=== PATIENT | male | born 1985 | race Caucasian/White ===

== ENCOUNTER → 2022-11-25 | Outpatient (CLI) | payer OTHER ==
[2022-11-25 13:39] LABS: BASO # 0.03 K/mm3 (0.02-0.10); EOS # 0.18 K/mm3 (0.04-0.40); EOS % 2.6 % (0.0-4.0); HEMATOCRIT 45.8 % (42.0-52.0); HEMOGLOBIN 15.4 g/dL (13.5-18.0); MEAN CELL VOLUME 89 fl (78-100); MEAN CORPUSCULAR HEMOGLOBIN 30 pg (27-31); MEAN CORPUSCULAR HGB CONC 34 g/dL (33-37); MEAN PLATELET VOLUME 9.5 fl (7.4-10.4); MONO # 0.43 K/mm3 (0.20-0.80); NEU # 4.69 K/mm3 (1.40-6.50); PLATELET COUNT 285 K/mm3 (130-400); RED BLOOD COUNT 5.14 M/mm3 (4.20-5.60); WHITE BLOOD COUNT 7.1 K/mm3 (4.8-10.8)
[2022-11-25 13:42] LABS: ALBUMIN 4.4 g/dL (3.5-5.0)
[2022-11-25 13:43] LABS: POTASSIUM 4.3 mmol/L (3.5-5.1)
[2022-11-25 13:44] LABS: CALCIUM 9.7 mg/dL (8.3-10.5)
[2022-11-25 13:45] LABS: TOTAL PROTEIN 7.8 g/dL (6.4-8.3)
[2022-11-25 13:47] LABS: TOTAL BILIRUBIN 0.8 mg/dL (0.2-1.2)
== END ==
LOC: LAB 13:20
DX: Z79.899 Other long term (current) drug therapy (principal)

== ENCOUNTER → 2024-03-07 | Outpatient (CLI) | payer OTHER ==
[~2024-03-07] MED LIST: LISINOPRIL20 MG PO; MELOXICAM7.5 MG PO; PREDNISONE10 MG PO; PREDNISONE20 M1 PO; ZYLOPRIM 100MG100 MG PO
[2024-03-07 16:15] LABS: BASO # 0.04 K/mm3 (0.02-0.10); EOS % 2.5 % (0.0-4.0); HEMATOCRIT 42.6 % (42.0-52.0); LYMPH# 1.61 K/mm3 (1.50-4.00); MEAN CELL VOLUME 92 fl (78-100); MEAN CORPUSCULAR HEMOGLOBIN 30 pg (27-31); MEAN CORPUSCULAR HGB CONC 33 g/dL (33-37); MEAN PLATELET VOLUME 9.3 fl (7.4-10.4); MONO # 0.47 K/mm3 (0.20-0.80); NEU # 5.67 K/mm3 (1.40-6.50); PLATELET COUNT 245 K/mm3 (130-400); RED BLOOD COUNT 4.65 M/mm3 (4.20-5.60); RED CELL DISTRIBUTION WIDTH 12.6 % (11.5-14.5)
[2024-03-07 16:22] LABS: ALBUMIN 4.2 g/dL (3.5-5.0)
[2024-03-07 16:24] LABS: CALCIUM 9.5 mg/dL (8.3-10.5)
[2024-03-07 16:25] LABS: TOTAL PROTEIN 7.4 g/dL (6.4-8.3)
[2024-03-07 16:27] LABS: TOTAL BILIRUBIN 0.5 mg/dL (0.2-1.2)
[2024-03-07 22:51] LABS: HEPATITIS B SURFACE ANTIBODY <2.0 (()); HEPATITIS B SURFACE ANTIGEN Negative (Negative); HEPATITIS C VIRUS ANTIBODY Negative (Negative)
[2024-03-11 12:18] LABS: TB GOLD INTERPRETATION.TB GOLD NEG; TB MITOGEN-NIL 5.02
[2024-03-11 12:19] LABS: TB TB2-NIL 0.0434
== END ==
LOC: LAB 15:49
DX: Z51.81 Encounter for therapeutic drug level monitoring (principal); Z79.899 Other long term (current) drug therapy